=== PATIENT | female | born 1935 | race Caucasian/White ===

== ENCOUNTER 2020-11-17 09:49 | Emergency (ER) | payer MEDICARE, OTHER, MEDICAID ==
[~2020-11-17] VITALS: Ht 152.4 cm; Wt 68.0 kg
[~2020-11-17 09:49] MED LIST: ASPIRIN EC81 MG PO; CENTRUM SILVER1 EACH PO; CEPHALEXIN500 MG PO; FOLBIC TABLET1 EACH PO; LEVOTHYROXINE75 MCG PO; LOSARTAN-HCTZ1 EAC1 PO; MACUVITE TABLE1 EACH PO; METAMUCIL425 GM PO; MUCUS RELIEF400 MG PO; OMEGA-31000 MG PO; ONDANSETRON ODT4 MG SL; QUESTRAN PACKET4 GM PO; TRANSDERM-SCOP1 EA TD; VITAMIN A8000 UNIT PO
[2020-11-17] MEDS ORDERED: METOPROLOL TAR100 MG PO (10:28)
[2020-11-17] MEDS ORDERED: CALCIUM 600+D1 EACH PO (10:29)
[2020-11-17] MEDS ORDERED: VITAMIN E400 UNI6 PO (10:30)
[2020-11-17] MEDS ORDERED: CEPHALEXIN500 M1 PO (14:18)
== END 2020-11-17 15:03 | disposition home or self-care (01) ==
LOC: ED 09:49
DX: N39.0 Urinary tract infection, site not specified (principal); N17.9 Acute kidney failure, unspecified; E86.0 Dehydration; I10 Essential (primary) hypertension; E78.00 Pure hypercholesterolemia, unspecified; Z88.8 Allergy status to other drugs, medicaments and biological substances; Z88.2 Allergy status to sulfonamides; Z91.012 Allergy to eggs; Z91.011 Allergy to milk products; Z79.899 Other long term (current) drug therapy; Z79.82 Long term (current) use of aspirin
CPT/HCPCS: 71045; 80053; 81001; 85025; 87077; 87088; 87186; 96374; 99284-25; J0696; J7030

== ENCOUNTER 2023-11-23 07:58 | Emergency (ER) | payer MEDICARE, OTHER ==
[~2023-11-23] VITALS: Ht 152.4 cm; Wt 56.5 kg
[~2023-11-23 07:58] MED LIST changes: +CALCIUM 600+D1 EACH PO; +CEPHALEXIN500 M1 PO; +METOPROLOL TAR100 MG PO; +VITAMIN E400 UNI6 PO
[2023-11-23] MEDS ORDERED: OXYBUTYNIN CHLO10 MG PO (08:21)
[2023-11-23] MEDS ORDERED: NITROFURANTOIN100 MG PO (08:23)
[2023-11-23 08:37] LABS: BASOPHILS 0.9 % (0-2); EOSINOPHILS 1.4 % (0-6); HEMATOCRIT 37.9 % (35.0-50.0); HEMOGLOBIN 12.7 g/dL (12.0-18.0); LYMPHOCYTES 37.6 % (24-44); MCH 30.1 (27-36); MCHC 33.6 g/dl (30-36); MCV 89.8 fl (81-99); MONOCYTES 12.9 % (0-12); NEUTROPHILS 47.2 % (39-80); PLATELET COUNT 174 K/uL (140-440); RBC 4.22 M/ul (4.3-5.7); RDW 13.5 (10.5-15.0)
[2023-11-23 08:53] LABS: ALBUMIN 3.3 g/dL (3.4-5.0); ALBUMIN/GLOBULIN RATIO 0.79 (1.1-2.4); ANION GAP 15.3 (7-21); BILIRUBIN, TOTAL 0.8 ng/dL (0.2-1.0); BUN/CREATININE RATIO 19.32 (6.0-28.6); CALCIUM 10.2 mg/dL (8.5-10.1); CREATININE, SERUM 1.19 mg/dL (0.55-1.02); POTASSIUM 3.3 mmol/L (3.5-5.1); PROTEIN, TOTAL 7.5 g/dL (6.4-8.2)
[2023-11-23 09:10] LABS: BILIRUBIN, URINE NEGATIVE (negative); BLOOD/HGB, URINE NEGATIVE (Negative); KETONE, URINE NEGATIVE (Negative); LEUK ESTERASE, URINE TRACE (negative); NITRITE, URINE NEGATIVE (negative); PH, URINE 5.5 (5-7)
[2023-11-23 09:16] LABS: RED BLOOD CELLS, URINE 0-1 /hpf (0-5)
[2023-11-23 09:17] LABS: BACTERIA, URINE NONE SEEN /hpf (negative); CASTS, URINE NONE SEEN \\lpf; COLLECTION TYPE, URINE CLEAN CATCH; CRYSTALS, URINE NONE SEEN (0-1+); EPITHELIAL CELLS, URINE SQUAMOUS 2+ /lpf (0-1+); REFLEX CULTURE, URINE No (No)
[2023-11-23] MEDS ORDERED: SODIUM CHLORIDE 0.9% 500 ML IV PRN (11:00)
[2023-11-23] MEDS ORDERED: PREMARIN30 GM PV (11:53)
[2023-11-23 12:07] VITALS: BP 160/63
--- NOTE | 2023-11-24 18:31 | EKG ---
[facility] [address] [facility] [place], [place] [address] Signed Normal sinus rhythm Left bundle branch block Abnormal ECG No previous ECGs available Confirmed by KENTRELL ASKEW MD ([id number] on 11/24/2023 6:31:48 PM Electronically Signed By: KENTRELL ASKEW 11/24/23 183 PATIENT NAME: DIEGO GUERRA Electrocardiogram DATE OF : 37 PHYSICIAN: KENTRELL ASKEW REPORT #: [id number] REPORT IS CONFIDENTIAL AND NOT TO BE RELEASED WITHOUT AUTHORIZATION
== END 2023-11-23 12:09 | disposition home or self-care (01) ==
LOC: ED 07:58
PROVIDERS: Emergency Medicine
DX: N95.2 Postmenopausal atrophic vaginitis (principal); I10 Essential (primary) hypertension; E78.00 Pure hypercholesterolemia, unspecified; Z88.8 Allergy status to other drugs, medicaments and biological substances; Z88.2 Allergy status to sulfonamides; Z91.012 Allergy to eggs; Z91.011 Allergy to milk products; Z79.899 Other long term (current) drug therapy; Z79.82 Long term (current) use of aspirin
CPT/HCPCS: 36415; 70450; 74176; 80053; 81001; 83690; 84484; 85025; 93005; 93010; 99285-25

== ENCOUNTER 2024-08-05 08:37 | Emergency (ER) | payer MEDICARE, OTHER ==
[~2024-08-05] VITALS: Ht 152.4 cm; Wt 58.5 kg
[~2024-08-05 08:37] MED LIST changes: +NITROFURANTOIN100 MG PO; +OXYBUTYNIN CHLO10 MG PO; +PREMARIN30 GM PV
[2024-08-05 08:56] LABS: BASOPHILS 0.3 % (0-2); EOSINOPHILS 1.2 % (0-6); HEMOGLOBIN 12.4 g/dL (12.0-18.0); LYMPHOCYTES 19.4 % (24-44); MCHC 34.6 g/dl (30-36); MCV 89.7 fl (81-99); MONOCYTES 8.5 % (0-12); NEUTROPHILS 70.6 % (39-80); PLATELET COUNT 190 K/uL (140-440); RBC 4.01 M/ul (4.3-5.7); RDW 13.4 (10.5-15.0)
[2024-08-05 09:07] LABS: ALBUMIN 3.3 g/dL (3.4-5.0); ALBUMIN/GLOBULIN RATIO 0.79 (1.1-2.4); ALCOHOL, MEDICAL <3 ng/dL (<3); ALKALINE PHOSPHATASE 66 U/L (46-116); ALT (SGPT) 31 U/L (14-59); ANION GAP 13.7 (7-21); AST (SGOT) 41 U/L (15-37); BILIRUBIN, TOTAL 0.9 ng/dL (0.2-1.0); BUN/CREATININE RATIO 21.49 (6.0-28.6); CALCIUM 9.3 mg/dL (8.5-10.1); CARBON DIOXIDE 27 mmol/L (21-32); CHLORIDE 102 mmol/L (98-107); CREATININE, SERUM 1.07 mg/dL (0.55-1.02); GLOMERULAR FILTRATION RATE,EST 50 mL/min (>60); POTASSIUM 3.7 mmol/L (3.5-5.1); PROTEIN, TOTAL 7.5 g/dL (6.4-8.2); UREA NITROGEN 23 mg/dL (7-18)
[2024-08-05] MEDS ORDERED: ondansetron HCL 4 MG/2 ML VIAL IV ONE (10:00)
[2024-08-05] MEDS ORDERED: KETOROLAC TROMETHAMINE 15 MG/ML VIAL IV ONE (10:00)
[2024-08-05] MEDS ORDERED: DIPHTH,PERTUSS(ACELL),TET VAC 0.5 ML SYRINGE IM ONE (10:15)
[2024-08-05] MEDS ORDERED: HYDROCODONE/ACETA 5/325 TAB PO ONE (11:45)
[2024-08-05] MEDS ORDERED: HYDROCODON-ACE1 EA10 PO (12:26)
[2024-08-05] MEDS ORDERED: ONDANSETRON ODT4 MG PO (12:26)
[2024-08-05 12:40] VITALS: BP 167/75
--- NOTE | 2024-08-05 18:31 | EKG ---
[facility] [address] [facility] [place] [address] Signed Sinus bradycardia with premature atrial complexes Left bundle branch block Abnormal ECG When compared with ECG of 23-NOV-2023 08:33, premature atrial complexes are now present Confirmed by Karel García MD ([id number]) on 08/05/2024 6:31:06 PM Electronically Signed By: KAREL GARCÍA MD 08/05/24 183 PATIENT NAME: MARIDIEGO SOUZAJORIE Electrocardiogram DATE OF : 37 PHYSICIAN: KAREL GARCÍA MD REPORT #: [id number] REPORT IS CONFIDENTIAL AND NOT TO BE RELEASED WITHOUT AUTHORIZATION
== END 2024-08-05 12:40 | disposition home or self-care (01) ==
LOC: ED 08:37
PROVIDERS: Emergency Medicine
DX: S12.100A Unspecified displaced fracture of second cervical vertebra, initial encounter for closed fracture (principal); S01.01XA Laceration without foreign body of scalp, initial encounter; W18.39XA Other fall on same level, initial encounter; I10 Essential (primary) hypertension; Z23 Encounter for immunization; Z88.2 Allergy status to sulfonamides; Z88.8 Allergy status to other drugs, medicaments and biological substances; Z91.012 Allergy to eggs; Z91.011 Allergy to milk products; Z79.82 Long term (current) use of aspirin
CPT/HCPCS: 12001; 36415; 70450; 72125; 80053; 85025; 90471; 90715; 93005; 93010; 99284-25; G0480; J1885; J2405